=== PATIENT | female | born 1995 | race Caucasian/White ===

== ENCOUNTER 2016-10-20 00:20 | Emergency (ER) | payer OTHER ==
[~2016-10-20] VITALS: Ht 162.6 cm; Wt 68.0 kg
[~2016-10-20 00:20] MED LIST: LO LOESTRIN FE1 TAB PO; PROAIR HFA0.09 MG/Ac IH
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
[2016-10-20 02:52] LABS: ABSOLUTE BASOPHIL COUNT 0 /CUMM (0.0-0.2); ABSOLUTE EOSINOPHIL COUNT 0.1 /CUMM (0.0-0.7); ABSOLUTE GRANULOCYTE CT 5.6 /CUMM (1.4-6.5); ABSOLUTE LYMPH COUNT 2.7 /CUMM (1.2-3.4); ABSOLUTE MONOCYTE COUNT 0.6 /CUMM (0.10-0.60); BASOPHIL % 0.3 % (0.0-2.0); EOSINOPHIL % 1.4 % (0-5); GRANULOCYTE % 61.6 % (42.2-75.2); HEMATOCRIT 41.4 % (37-47); MEAN CORPUSCULAR HGB 30.5 PG (27.0-31.0); MEAN CORPUSCULAR VOLUME 92.5 FL (81.0-99.0); PLATELET COUNT 393 /CUMM (130-400); RBC DISTRIBUTION WIDTH 12.8 % (11.5-14.5); RED BLOOD CELL CT 4.48 /CUMM (4.20-5.40); WHITE BLOOD CELL COUNT 9.1 /CUMM (4.8-10.8)
[2016-10-20 13:28] VITALS: BP 130/68
--- NOTE | 2016-10-20 13:41 | ED PSYCH CRISIS CONSULTATION ---
See Addendum Crisis Consult Basic Assessment Date of Consult: 10/20/16 Responsible Person/Accompanied By: self Insurance Authorization: Insurance #1: Insurance name: FARHANA SANTOS Phone number: Policy number: [id number] Group number: Authorization number: ED Provider: Patient's ED Provider: ELIO PAULSON,GEORGIE Frausto Primary Care Physician: Patient's PCP: PATIENT HAS NO PRIMARY CARE DR PCP's Phone Number: Current Psychiatrist: none Chief Complaint: ETOH/Drug Related Complaint Patient's Quote: "If I don't get into a detox then I will become suicidal" Present Illness: Pt is a 21yo female who was brought to the ED by her mother requesting detox and expressing that if she does not get into detox then she will become suicidal and possibly overdose. Pt denies active Si as she is hopeful to get into detox, "but if I can't get help, than I will want to kill myself because my life is hopeless." Pt reports that she last used heroin 2 days ago and uses 10 bags daily snorting and or injecting. Pt also admits that she uses $40.00 worth of crack daily, smokes cannabis "once in awhile", and drinks a whole bottle on Nidia in one day 1x weekly. Pt was not able to account for the barbiturates in her UDS. Pt expresses feeling depressed with hopelessness and helplessness, poor sleep and poor appetite. Pt says she does not feel safe to discharge and persue detox on her own as she is worried she will become suicidal. Pt identifies current withdrawl sx of nausea, body pain, and feeling shaky. Pt reports prior hx of suicide attempt by OD in 2013. She identified the trigger to her suicide attempt was trying to detox. Pt was psychiatrically hospitalized and detoxed on [facility]. Pt also states that she was in tx at [facility] in 2013. Pt denies any current tx. Crisis also spoke to pt's mother Cary Mayen who is concerned about her daughter and does not feel she is stable for discharge and is willing to drive her to a detox facility. Pt is able to contract for safety as long as she can go to an inpt detox, but does not feel she is safe for discharge. Case reviewed with Dr. Stone of Psychiatry and a detox bed search will be done. Patient's Address: [address] [place] [address] Other Phone Number: Who Do You Live With? Other (see notes) (roommates) Family/Informants Interviewed: Mother Allergies - Coded Allergies: amoxicillin (Mild, RASH 10/20/16) Penicillins (RASH 10/20/16) Sulfa (Sulfonamide Antibiotics) (RASH 10/20/16) cefprozil (RASH 10/20/16) Current Medications - Scheduled Medications Albuterol Sulfate (Proair Hfa) 0.09 MG/Actuation ROMEL 1 PUF IH PRN ASTHMA #8 ( Reported) Entered as Reported by YNES SCHAEFER on 02/28/148 NORETHINDRONE-E.ESTRADIOL-IRON (Lo Loestrin Fe 1-10 Tablet) 1MG-10(24) TABLET 1 TAB PO DAILY BCP #84 (Reported) Entered as Reported by KARLY MOREAU on 02/28/14 2212 Laboratory Results: Laboratory Tests 10/20/16 1231: Urine Opiates Screen 546.00, Methadone Screen < 40, Barbiturate Screen 616 H, Ur Phencyclidine Scrn < 6.00, Amphetamines Screen < 100, U Benzodiazepines Scrn < 85, Urine Cocaine Screen > 1000 H, Urine Cannabis Screen > 80.00 H 10/20/16 0244: Anion Gap 12, Estimated GFR > 60, BUN/Creatinine Ratio 14.3, Glucose 124 H, Calcium 9.0, Total Bilirubin 0.3, AST 21, ALT 35, Alkaline Phosphatase 67, Total Protein 6.6, Albumin 3.7, Globulin 2.9, Albumin/Globulin Ratio 1.3, Total Beta HCG NEGATIVE, CBC w Diff NO MAN DIFF REQ, RBC 4.48, MCV 92.5, MCH 30.5, RDW 12.8 , MPV 8.0, Gran % 61.6, Lymphocytes % 29.9, Monocytes % 6.8, Eosinophils % 1.4, Basophils % 0.3, Absolute Granulocytes 5.6, Absolute Lymphocytes 2.7, Absolute Monocytes 0.6, Absolute Eosinophils 0.1, Absolute Basophils 0, PUBS MCHC 33.0, Serum Alcohol < 10.0 Past History Past Medical History Respiratory: asthma Psychiatric: anxiety, bipolar disease, depression, insomnia Past Surgical History Surgical History: 1 Psychosocial History Strengths/Capabilities: supportive mother, seeking treatment, motivated for sobriety Physical Limitations (Interventions): none reported Psychiatric Treatment History Psych Treatment Psychiatric Treatment Yes Inpatient Treatment Yes Outpatient Treatment No Location of Treatment [facility] Reason for Treatment Depression and poly-substance Dates of Treatment 2013 Response to Treatment poor Diagnosis by History: polysubstance Substance Use/Abuse History Drug Use/Abuse Substances Used/Abused Yes Substance Used/Abused Other (list in comments) (See HPI) Substance Abuse Treatment Substance Abuse Treatment Past Substance Abuse [place] Yes Inpatient Treatment Yes Outpatient Treatment Yes Location of Treatment [facility] Reason for Treatment polysubstance Dates of Treatment 2013 Response to Treatment poor Current Mental Status Mental Status Orientation: Person, Place, Situation Affect: Anxious, Depressed, Hopeless, Sad Speech: Soft Neuro-vegetative: Anhedonia, Appetite Decreased, Concentration Poor, Helpless, Loss of Interest, Sleep Disturbance Appearance Appearance- Dress/Hygiene: fairly groomed, good eye contact Behaviors Thought Process: WNL Thought Content: WNL Memory: WNL Insight: WNL SI/HI Risk Assessment Past Suicidal Ideation/Attempts Yes Current Suicidal Ideation/Att No Past Homicidal Ideation/Att: No Current Homicidal Ideation/Attempts No Degree of Intent: None Risk Factors: age (under 24/over 65), substance abuse Lethality Ratin (mild) PTSD Checklist PTSD Done? 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
== END 2016-10-20 16:04 ==
LOC: ERH 00:20
PROVIDERS: Pediatrics
DX: F11.23 Opioid dependence with withdrawal (principal)
CPT/HCPCS: 80307; G0463; G0480; J3101